=== PATIENT | male | born 2000 | race African-American/Black ===

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

== ENCOUNTER 2021-01-08 12:24 | Emergency (ER) | payer SELFPAY ==
--- NOTE | 2021-01-08 13:19 | EDPHYS ---
Physician Documentation [facility] Name: Lanre Cedeño Age: 20 yrs Sex: Male : 2000 Arrival Date: 01/08/2021 Time: 12:28 Bed Waiting Private MD: ED Physician Skyler Reyes HPI: 01/08 13:17 This 20 yrs old Black Male presents to ER via Ambulatory with complaints of r/o covid. kb 13:17 "My girlfriend has a sore throat. I looked it up and it says that's a symptom of covid kb so we came to get tested. I'm good. I don't have anything wrong.". The patient has not experienced similar symptoms in the past. The patient has not recently seen a physician. Historical: - Allergies: 12:57 No Known Allergies; hb - Immunization history:: Adult Immunizations up to date. - Social history:: Smoking status: Patient denies any tobacco usage or history of. ROS: 13:15 Constitutional: Negative for fever, chills, and weight loss. kb 13:15 All other systems are negative. Exam: 13:17 Constitutional: This is a well developed, well nourished patient who is awake, alert, kb and in no acute distress. Head/Face: Normocephalic, atraumatic. ENT: Moist Mucous membranes Respiratory: Respirations even and unlabored. No increased work of breathing, no retractions or nasal flaring. Skin: Warm, dry with normal turgor. Normal color. MS/ Extremity: Pulses equal, no cyanosis. Neurovascular intact. Full, normal range of motion. Neuro: Awake and alert, GCS 15, oriented to person, place, time, and situation. Moves all extremities. Normal gait. Psych: Awake, alert, with orientation to person, place and time. Behavior, mood, and affect are within normal limits. Vital Signs: 12:56 BP 167 / 83; Pulse 97; Resp 16; Temp 97.8; Pulse Ox 100% ; hb MDM: 13:00 Patient medically screened. kb 13:14 Data reviewed: vital signs, nurses notes. Data interpreted: Pulse oximetry: on room air kb is 100 %. Interpretation: normal. Counseling: I had a detailed discussion with the patient and/or guardian regarding: the historical points, exam findings, and any diagnostic results supporting the discharge/admit diagnosis, the need for outpatient follow up, a family practitioner, to return to the emergency department if symptoms worsen or persist or if there are any questions or concerns that arise at home. 13:15 Medical screen evaluation completed. EMTALA emergency medical condition absent. kb 01/08 12:37 Order name: COVID-19 : Document "Date of Symptom Onset" if Symptomatic. [email or web address] 01/08 12:37 Order name: CORONAVIRUS EDMS Administered Medications: No medications were administered Disposition: 13:15 Encounter for COVID test - asymptomatic. kb 01/09 07:46 Co-signature as Attending Physician, Skyler Reyes MD I agree with the assessment and nallely plan of care. Disposition Summary: 01/08/21 13:18 Discharge Ordered Location: Home kb Condition: Stable kb Diagnosis - Encounter for screening, unspecified kb Followup: kb - With: Emergency Department - When: As needed - Reason: Worsening of condition Followup: kb - With: Private Physician - When: 2 - 3 days - Reason: Recheck today's complaints, Continuance of care, Re-evaluation by your physician Forms: - Medication Reconciliation Form kb - Thank You Letter kb - Antibiotic Education kb - Prescription Opioid Use kb Signatures: Dispatcher [employer] EDTereza Mendiola, DRIVER LICENSE REVIEWING OFFICER-C DRIVER LICENSE REVIEWING OFFICER-Skyler Ribeiro MD MD cha Baxter, Heather, RN RN
--- NOTE | 2021-01-08 13:19 | ER ---
Nurse's Notes [facility] Name: Lanre Cedeño Age: 20 yrs Sex: Male : 2000 Arrival Date: 01/08/2021 Time: 12:28 Bed Waiting Private MD: Diagnosis: Encounter for screening, unspecified Presentation: 01/08 12:56 Chief complaint: Girlfriend has sore throat, he is concerned he may have COVID. Denies hb any symptoms. Coronavirus screen: At this time, the client does not indicate any symptoms associated with coronavirus-19. Ebola Screen: No symptoms or risks identified at this time. Initial Sepsis Screen: Does the patient meet any 2 criteria? No. Patient's initial sepsis screen is negative. Does the patient have a suspected source of infection? No. Patient's initial sepsis screen is negative. Risk Assessment: Do you want to hurt yourself or someone else? Patient reports no desire to harm self or others. Onset of symptoms was January 08, 2021. 12:56 Method Of Arrival: Ambulatory hb 12:56 Acuity: FERMÍN 5 hb Historical: - Allergies: 12:57 No Known Allergies; hb - Immunization history:: Adult Immunizations up to date. - Social history:: Smoking status: Patient denies any tobacco usage or history of. Vital Signs: 12:56 BP 167 / 83; Pulse 97; Resp 16; Temp 97.8; Pulse Ox 100% ; hb ED Course: 12:28 Patient arrived in ED. as 12:48 [facility]C [facility] kb 12:48 Skyler Reyes MD is Attending Physician. kb 12:57 Triage completed. hb 12:57 Arm band placed on. hb Administered Medications: No medications were administered Outcome: 13:18 Discharge ordered by . kb 15:32 Patient left the ED. kb Signatures: Tereza Robison FNP-C FNP-Ckb Martinez, Amelia as Baxter, Heather, RN RN hb Corrections: (The following items were deleted from the chart) 12:57 12:56 Acuity: FERMÍN 4 hb hb
[2021-01-08 15:40] VITALS: BP 167/83; TEMP 97.8; O2SAT 100
== END 2021-01-08 15:32 | disposition home or self-care (01) ==
LOC: ER 12:24
DX: Z20.822 Contact with and (suspected) exposure to COVID-19 (principal)
CPT/HCPCS: 99281